=== PATIENT | female | born 1990 | race Caucasian/White ===

== ENCOUNTER 2016-11-21 06:42 | Inpatient (IN) | payer BC ==
[2016-11-21] MEDS ORDERED: HOME MEDICATION LIST NEEDED 1 EA EACH MC ONE (07:09)
[2016-11-21] MEDS ORDERED: LIDOCAINE HCL/PF 1% 30 ML VIAL SUBCUT PRN (07:09)
[2016-11-21] MEDS ORDERED: OXYTOCIN/NORMAL SALINE 30 UNIT/500 ML BAG IV SCH (07:09)
[2016-11-21] MEDS ORDERED: FENTANYL 100 MCG/2 ML VIAL IV PRN (07:09)
[2016-11-21] MEDS ORDERED: PENICILLIN G POTASSIUM 5 MMU in NORMAL SALINE 100 ML IV ONE (07:09)
[2016-11-21] MEDS ORDERED: FENTANYL 100 MCG/2 ML VIAL IV ONE (07:09)
[2016-11-21] MEDS ORDERED: MISOPROSTOL 200 MCG TABLET PO PRN ×2 (07:09)
[2016-11-21] MEDS ORDERED: PENICILLIN G POTASSIUM 2.5 MMU in NORMAL SALINE 100 ML IV SCH (07:09)
[2016-11-21] MEDS ORDERED: ONDANSETRON HCL 4 MG/2 ML VIAL IV PRN (07:09)
[2016-11-21 07:38] LABS: BASOPHIL# 0.1 X 10^3uL (0.0-0.1); BASOPHILS 0.5 % (0.0-2.0); EOSINOPHILS 1.1 % (0.0-6.0); EOSINOPHILS# 0.1 X 10^3uL (0.0-0.4); HEMATOCRIT 40.6 % (36.0-48.0); HEMOGLOBIN 14.2 g/dL (12.0-16.0); LYMPHOCYTES 10.7 % (20.0-40.0); LYMPHOCYTES# 1.3 X 10^3uL (0.8-3.8); MEAN CORPUS. HGB CONCENTRATION 35.1 g/dL (32.0-36.0); MEAN CORPUSCULAR HEMOGLOBIN 31.9 pg (29.0-35.0); MEAN PLATELET VOLUME 8.1 fL (7.4-10.4); MONOCYTES 4.2 % (2.0-10.0); MONOCYTES# 0.5 X 10^3uL (0.2-1.0); NEUTROPHILS 83.5 % (54.0-75.0); NEUTROPHILS# 9.9 X 10^3uL (2.6-6.7); PLATELET COUNT 205 X 10^3uL (130-440); RED BLOOD COUNT 4.46 X 10^6uL (4.20-6.10); RED CELL DISTRIBUTION WIDTH 12.1 % (11.5-14.5); WHITE BLOOD COUNT 11.9 X 10^3uL (3.9-10.7)
[2016-11-21] MEDS: LACTATED RINGERS 1,000 ML IV SCH ×2 (07:40→10:00)
[2016-11-21] MEDS ORDERED: PENICILLIN G POTASSIUM 5 MMU VIAL ONE (07:50)
[2016-11-21] MEDS ORDERED: NORMAL SALINE 100 ML IV ONE (07:50)
[2016-11-21 09:43] LABS: ANTIBODY SCREEN NEGATIVE
[2016-11-21] MEDS ORDERED: ACETAMINOPHEN 325 MG TABLET PO PRN (13:30)
[2016-11-21] MEDS ORDERED: HC ACETATE/PRAMOXINE HCL FOAM 1 APPLIC APP RC PRN (13:30)
[2016-11-21] MEDS ORDERED: MAGNESIUM HYDROXIDE 30 ML UDC PO PRN (13:30)
[2016-11-21] MEDS ORDERED: LANOLIN CREAM 1 APP/7 GM TUBE TOPICAL PRN (13:30)
[2016-11-21] MEDS ORDERED: WITCH HAZEL 1 EACH MED..PAD TP PRN (13:30)
[2016-11-21] MEDS ORDERED: DIPHENHYDRAMINE 25 MG CAPSULE PO PRN (13:30)
[2016-11-21] MEDS ORDERED: BENZOCAINE/LANOLIN/ALOE 1 SPRAY BOTTLE TP PRN (13:30)
[2016-11-21] MEDS: IBUPROFEN 600 MG TABLET PO PRN (21:05)
[2016-11-22 06:20] LABS: HEMATOCRIT 38.7 % (36.0-48.0); HEMOGLOBIN 12.9 g/dL (12.0-16.0)
--- NOTE | 2016-11-22 08:48 | PROGRESS NOTE:Vaginal Delivery ---
Assessment and Plan - Date of Encounter Date of Encounter: 11/22/16 - Time Spent With Patient Total time spent with greater than 50% in coordination of care (as documented) at patient's floor/unit and/or counseling patient: [employer] SALES ASSOCIATE: Vag Del PN Subjective Interval history: PPD#1 s/p . Patient notes she is doing well and has no concerns. going well. Lochia is light. She is voiding as usual. VSS. Fundus firm. Ext nega. Labs reviewed. A/P Doing well, continue care. All satisfied with this plan. Post- Day: 1 Patient reports: appetite normal, voiding normally [place]: doing well, nursing well [employer] SALES ASSOCIATE: Beatriz Del PN Obj Exam - Latest Vital Signs and I&O Latest Vital Signs/I&O: Vital Signs Temp 36.5 C 11/22/16 06:30 Pulse 100 H 11/22/16 06:30 Resp 18 11/22/16 06:30 BP 110/69 11/22/16 06:30 Pulse Ox 95 11/22/16 06:30 Intake & Output 11/21/16 11/22/16 11/22/16 17:59 05:59 17:59 Intake Total 2800 Output Total 1600 Balance 1200 Weight 69.4 kg Intake: IV 2600 Pfizerpen 5 Mmu In Sodium 100 Chloride 0.9% 100 ml 100 ml @ 100 mls/hr IV ONCE ONE Rx#:[id number] Pitocin/Ns 30 Unit/500 ml 500 30 unit IV CONT GEOVANNI Rx#: [id number] Lr 1000 ml Bag 1,000 ml @ 2000 999 mls/hr IV CONT GEOVANNI Rx#:[id number] Oral 200 Output: Urine 1600 Other: Urine Appearance Clear Clear Urine Color Yellow Yellow Voiding Method Toilet Toilet # Voids 1 1 - Lab Labs: Laboratory Last Values WBC 11.9 X 10^3uL (3.9-10.7) H 11/21/16 07:09 RBC 4.46 X 10^6uL (4.20-6.10) 11/21/16 07:09 Hgb 12.9 g/dL (12.0-16.0) 11/22/16 06:05 Hct 38.7 % (36.0-48.0) 11/22/16 06:05 MCV 91.0 fL (80.0-100.0) 11/21/16 07:09 MCH 31.9 pg (29.0-35.0) 11/21/16 07:09 MCHC 35.1 g/dL (32.0-36.0) 11/21/16 07:09 RDW 12.1 % (11.5-14.5) 11/21/16 07:09 Plt Count 205 X 10^3uL (130-440) 11/21/16 07:09 MPV 8.1 fL (7.4-10.4) 11/21/16 07:09 Neutrophils % 83.5 % (54.0-75.0) H 11/21/16 07:09 Lymphocytes % 10.7 % (20.0-40.0) L 11/21/16 07:09 Eosinophils % 1.1 % (0.0-6.0) 11/21/16 07:09 Basophils % 0.5 % (0.0-2.0) 11/21/16 07:09 Neutrophils # 9.9 X 10^3uL (2.6-6.7) H 11/21/16 07:09 Lymphocytes # 1.3 X 10^3uL (0.8-3.8) 11/21/16 07:09 Monocytes 4.2 % (2.0-10.0) 11/21/16 07:09 Monocytes # 0.5 X 10^3uL (0.2-1.0) 11/21/16 07:09 Eosinophils # 0.1 X 10^3uL (0.0-0.4) 11/21/16 07:09 Basophils # 0.1 X 10^3uL (0.0-0.1) 11/21/16 07:09 Antibody Screen Negative 11/21/16 07:09
[2016-11-22] MEDS: IBUPROFEN 600 MG TABLET PO PRN ×2 (09:09→17:12)
[2016-11-22] MEDS: PRENATAL VIT/FE FUMARATE/FA 1 TAB TABLET PO SCH (09:09)
[2016-11-22] MEDS: DOCUSATE SODIUM 100 MG CAPSULE PO SCH ×2 (09:09→21:17)
[2016-11-23] MEDS: IBUPROFEN 600 MG TABLET PO PRN ×2 (04:48→10:30)
[2016-11-23] MEDS: DOCUSATE SODIUM 100 MG CAPSULE PO SCH ×2 (06:19→08:44)
--- NOTE | 2016-11-23 06:42 | DC SUMMARY: Obstetrical/GYN ---
Discharge Summary: Surg/OB Provider: Date of Admission: 11/21/16 Admitting Provider: Rosa Maria Romero Attending Provider: Rosa Maria Romero Discharging Provider: Rosa Maria Romero Primary Care Provider: Discharge Date: 11/23/16 PPD#2 s/p , uncomplicated delivery. Patient doing well. She desires discharge today. She is voiding well, lochia is normal. without difficulty. She desires minipill for control. VSS Fundus firm. Ext negative. A/P Stable for discharge. Home with precautions and follow up. All questions answered and she is satisfied with plan. - Diagnosis (1) Vaginal delivery Status: Resolved Hospital Course: Ms. SANCHEZ is a 26 year old female s/p uncomplicated vaginal delivery. She meets discharge criteria and her exam is normal. Precautions and follow up reviewed. Plan home later today with baby. Discharge Disposition: HOME, SELF-CARE Obstetrical/SEO SPECIALIST Discharge Exam - Latest Vital Signs and I&O Latest Vital Signs/I&O: Vital Signs Temp 36.7 C 11/23/16 04:50 Pulse 75 11/23/16 04:50 Resp 16 11/23/16 04:50 BP 108/76 11/23/16 04:50 Pulse Ox 98 11/22/16 19:45 Intake & Output 11/22/16 11/23/16 11/23/16 17:59 05:59 17:59 Other: Voiding Method Toilet Toilet Discharge Summary Data - Medication History Medication History: Home Medications Vit/Fe Fumarate/FA [ Rx 1] 1 tab PO DAILY 11/21/16 Inpatient Medications 11/21/16 13:30 Acetaminophen [Tylenol] 650 mg PO Q6H PRN Benzocaine/Lanolin/Aloe [Dermoplast Orlinda] 1 spray TP PRN PRN Diphenhydramine [Benadryl] 50 mg PO HS PRN Docusate Sodium [Colace] 100 mg PO Q12H Hc Acetate/Pramoxine HCl Foam [Proctofoam-Hc Foam] 1 applic RC PRN PRN Ibuprofen [Motrin] 600 mg PO Q6H PRN Lanolin Cream [Lansinoh] 1 esther TOPICAL PRN PRN Magnesium Hydroxide [Milk of Magnesia] 30 ml PO PRN PRN Witch Melida [Tucks Take-Alongs] 1 each TP PRN PRN 11/22/16 09:00 Vit/Fe Fumarate/FA [ Rx 1] 1 tab PO DAILY Procedures and tests throughout hospitalization: Completed Lab Orders 11/21/16 07:09 ANTIBODY SCREEN [HEM] Urgent CBC AUTO DIF, MDIF/RMOR IF IND [HEM] Urgent 11/22/16 06:05 HGB & HCT PANEL [HEM] AMDRAW Pending Orders 11/06/16 15:59 Resuscitation Status Routine 11/21/16 07:09 Epidural on demand/Notify TRUST OFFICER PER PROTOCOL Straight Cath PRN 11/21/16 13:30 Admit: Inpatient Routine VTE Prophylaxis Scoring/ Ordering Routine May shower TOLERATED Post Assessment PER PROTOCOL Vital Signs Q8H Acetaminophen [Tylenol] 650 mg PO Q6H PRN Benzocaine/Lanolin/Aloe [Dermoplast Orlinda] 1 spray TP PRN PRN Diphenhydramine [Benadryl] 50 mg PO HS PRN Docusate Sodium [Colace] 100 mg PO Q12H Hc Acetate/Pramoxine HCl Foam [Proctofoam-Hc Foam] 1 applic RC PRN PRN Ibuprofen [Motrin] 600 mg PO Q6H PRN Lanolin Cream [Lansinoh] 1 esther TOPICAL PRN PRN Magnesium Hydroxide [Milk of Magnesia] 30 ml PO PRN PRN Witch Mel[place] [Tucks Take-Alongs] 1 each TP PRN PRN 11/21/16 Lunch Regular [DIET] 11/22/16 09:00 Vit/Fe Fumarate/FA [ Rx 1] 1 tab PO DAILY 11/22/16 Dinner Special Meal (NLC) 11/22/16 Lunch DIET [Regular] [DIET] Labs on day of discharge: Labs from last 24 hours 11/22/16 06:05 Hgb 12.9 Hct 38.7
[2016-11-23] MEDS: PRENATAL VIT/FE FUMARATE/FA 1 TAB TABLET PO SCH (08:44)
[2016-11-23 10:22] VITALS: BP 113/68; PULSE 79; RESP 18; TEMP 97.9; O2SAT 97
== END 2016-11-23 10:45 | disposition home or self-care (01) | DRG 775 ==
LOC: NLCPRO 06:42 → NLC 06:44
PROVIDERS: ADMIT Obstetrics & Gynecology; ATTEND Obstetrics & Gynecology
PROC: 0KQM0ZZ Repair Perineum Muscle, Open Approach (ICD-10-PCS; principal; 2016-11-21)
PROC: 10E0XZZ Delivery of Products of Conception, External Approach (ICD-10-PCS; principal; 2016-11-21)
DX: O70.0 First degree perineal laceration during delivery (principal); O99.824 Streptococcus B carrier state complicating childbirth; Z37.0 Single live birth
CPT/HCPCS: 36415; 85014; 85018; 85025; 86850; J7120